=== PATIENT | female | born 1980 | race American Indian/Alaskan Native ===

== ENCOUNTER 2016-09-30 14:08 | Emergency (ER) | payer MEDICAID, OTHER ==
--- NOTE | 2016-09-30 15:02 | Emergency Department Report ---
Chief Complaint: Abdominal Pain Stated Complaint: ABDOMINAL PAIN Time Seen by Provider: 09/30/16 14:46 - HPI History of Present Illness: Patient here complaining or right lower quadrant abdominal pain since 7:00 this morning she says she was sent from urgent care to rule out appendicitis. She reports nausea but denies vomiting. Denies any diarrhea or vaginal bleeding. Denies any vaginal discharge or painful urination. Pain to right lower quadrant is 8 out of 10. Denies any fever or chills. - ROS Review of Systems: All systems are negative unless stated in HPI above. - Exam Vital Signs: Vital Signs 09/30/16 14:11 Temperature 98.3 F Pulse Rate 72 Respiratory 16 Rate Blood Pressure 141/97 O2 Sat by Pulse 100 Oximetry Physical Exam: General: This is a 36-year-old female well-nourished well-developed in no acute distress. CV: S1, S2. Regular rate and rhythm. Abdomen: Tender to palpate to right lower quadrant with positive guarding. Normal bowel sounds and no CVA tenderness. MSE screening note: Focused history and physical exam performed. Due to findings the following was ordered: See MDM ED Medical Decision Making - Medical Decision Making Medical decision making: Patient seen by provider in triage area. Appropriate protocol activated and patient to main ED to be seen by physician. ED Disposition for MSE Condition: Stable Instructions: Abdominal Pain (ED)
[2016-09-30 15:43] LABS: Basophils % (Auto) 0.8 % (0.0-1.8); Eosinophils % (Auto) 0.4 % (0.0-4.3); Hemoglobin 13.4 gm/dl (10.1-14.3); Mean Corpuscular HGB Conc 33 % (30-34); Mean Corpuscular Hemoglobin 32 pg (28-32); Mean Corpuscular Volume 98 fl (79-97); Platelet Count 292 K/mm3 (140-440); Red Blood Count 4.19 M/mm3 (3.65-5.03); Red Cell Distribution Width 14.3 % (13.2-15.2); White Blood Count 11.8 K/mm3 (4.5-11.0)
[2016-09-30 15:49] LABS: INR 0.95 (0.87-1.13)
[2016-09-30 15:50] LABS: Partial Thromboplastin Time 32.2 Sec. (24.2-36.6)
[2016-09-30 16:01] LABS: Alanine Aminotransferase 8 units/L (7-56); Albumin 4.4 g/dL (3.9-5); Albumin/Globulin Ratio 1.3 %; Alkaline Phosphatase 54 units/L (35-129); Anion Gap 18 mmol/L; Bilirubin,Total 0.6 mg/dL (0.1-1.2); Blood Urea Nitrogen 9 mg/dL (7-17); Calcium 9.6 mg/dL (8.4-10.2); Carbon Dioxide 26 mmol/L (22-30); Chloride 99.9 mmol/L (98-107); Glucose 80 mg/dL (65-100); Lipase 48 units/L (13-60); Potassium 4.5 mmol/L (3.6-5.0); Sodium 139 mmol/L (137-145); Total Protein 7.8 g/dL (6.3-8.2)
[2016-09-30 16:15] LABS: Bilirubin,Direct < 0.2 mg/dL (0-0.2); Bilirubin,Indirect 0.4 mg/dL
--- NOTE | 2016-09-30 17:54 | Cat Scan Report ---
FINAL REPORT EXAM: CT ABDOMEN PELVIS WO CON HISTORY: abdominal pain RLQ. TECHNIQUE: CT abdomen and pelvis without contrast PRIORS: None. FINDINGS: No acute abnormality identified in the lung bases. No focal abnormality identified within the liver parenchyma. The spleen demonstrates normal size and attenuation. No pancreatic abnormalities seen. Kidneys demonstrate no evidence of hydronephrosis or nephrolithiasis. No ureteral calculus identified. The adrenal glands are unremarkable. Abdominal aorta is normal in caliber. No pathologically enlarged lymph nodes are identified. No signs of free fluid or free air No evidence of small bowel dilatation. Distal appendix is tentatively identified. Proximal appendix is not well seen. There are no acute inflammatory changes seen within the right lower quadrant unremarkable. IMPRESSION: Negative. No acute abnormalities seen
[2016-09-30 19:19] LABS: Bilirubin,Urine NEG (Negative); Blood,Urine NEG (Negative); Ketones,Urine 20 mg/dL (Negative); Leukocyte Esterase,Urine NEG (Negative); Mucus,Urine FEW /HPF; Nitrite,Urine NEG (Negative); Protein,Urine <15 mg/dL mg/dL (Negative); Urobilinogen,Urine < 2.0 mg/dL (<2.0)
[2016-09-30 19:31] LABS: WBC,Urine < 1.0 /HPF (0.0-6.0)
--- NOTE | 2016-10-01 18:27 | ED Elopement Review ---
ED Pt Elopement review - Results review Lab results: Laboratory Tests 09/30/16 09/30/16 09/30/16 15:18 15:18 15:18 WBC 11.8 H RBC 4.19 Hgb 13.4 Hct 41.0 MCV 98 H MCH 32 MCHC 33 RDW 14.3 Plt Count 292 Lymph % (Auto) 31.4 Tift % (Auto) 6.4 Eos % (Auto) 0.4 Baso % (Auto) 0.8 Lymph # 3.7 Tift # 0.8 Eos # 0.1 Baso # 0.1 Seg Neutrophils % 61.0 Seg Neutrophils # 7.2 PT 12.6 INR 0.95 APTT 32.2 Sodium Potassium Chloride Carbon Dioxide Anion Gap BUN Creatinine Estimated GFR BUN/Creatinine Ratio Glucose Calcium Total Bilirubin Direct Bilirubin Indirect Bilirubin AST ALT Alkaline Phosphatase Total Protein Albumin Albumin/Globulin Ratio Amylase 73 Lipase HCG, Qual Urine Color Urine Turbidity Urine pH Ur Specific [place] Urine Protein Urine Glucose (UA) Urine Ketones Urine Blood Urine Nitrite Urine Bilirubin Urine Urobilinogen Ur Leukocyte Esterase Urine WBC (Auto) Urine RBC (Auto) U Epithel Cells (Auto) Urine Mucus 09/30/16 09/30/16 09/30/16 15:18 15:18 18:30 WBC RBC Hgb Hct MCV MCH MCHC RDW Plt Count Lymph % (Auto) Tift % (Auto) Eos % (Auto) Baso % (Auto) Lymph # Tift # Eos # Baso # Seg Neutrophils % Seg Neutrophils # PT INR APTT Sodium 139 Potassium 4.5 Chloride 99.9 Carbon Dioxide 26 Anion Gap 18 BUN 9 Creatinine 0.5 L Estimated GFR > 60 BUN/Creatinine Ratio 18.00 Glucose 80 Calcium 9.6 Total Bilirubin 0.6 Direct Bilirubin < 0.2 Indirect Bilirubin 0.4 AST 14 ALT 8 Alkaline Phosphatase 54 Total Protein 7.8 Albumin 4.4 Albumin/Globulin Ratio 1.3 Amylase Lipase 48 HCG, Qual Negative Urine Color Yellow Urine Turbidity Clear Urine pH 5.0 Ur Specific [place] 1.012 Urine Protein <15 mg/dl Urine Glucose (UA) Neg Urine Ketones 20 Urine Blood Neg Urine Nitrite Neg Urine Bilirubin Neg Urine Urobilinogen < 2.0 Ur Leukocyte Esterase Neg Urine WBC (Auto) < 1.0 Urine RBC (Auto) 1.0 U Epithel Cells (Auto) 1.0 Urine Mucus Few - Call Back decision Pt Call Back Decision: No action required
== END 2016-09-30 23:47 | disposition home or self-care (01) ==
LOC: ED 14:08
DX: R10.31 Right lower quadrant pain (principal); R11.0 Nausea; Z53.21 Procedure and treatment not carried out due to patient leaving prior to being seen by health care provider
CPT/HCPCS: 36415; 74176; 80048; 80074; 81001; 82150; 83690; 84703; 85025; 85610; 85730

== ENCOUNTER 2019-10-15 14:32 | Emergency (ER) | payer SELFPAY ==
--- NOTE | 2019-10-15 16:22 | Event Note ---
ED Screening Note Date of service: 10/15/19 ED Screening Note: This initial assessment/diagnostic orders/clinical plan/treatment(s) is/are subject to change based on patients health status, clinical progression and re- assessment by fellow clinical providers in the ED. Further treatment and workup at subsequent clinical providers discretion. Patient/guardian urged not to elope from the ED as their condition may be serious if not clinically assessed and managed. Initial orders include: Cough, N/P for 3-4 days. Chronic R hand soreness with repetitive use syndrome. Works as Photocopying Equipment Mechanic. N/V Intact. No deformity
--- NOTE | 2019-10-15 17:05 | XRay Report ---
RIGHT HAND 3 VIEWS INDICATION / CLINICAL INFORMATION: Right hand pain and weakness for one week. COMPARISON: None available. FINDINGS: BONES and JOINT(S): No acute fracture or subluxation. No significant arthritis. SOFT TISSUES: No significant abnormality. ADDITIONAL FINDINGS: None. IMPRESSION: No significant abnormality of the right hand. Signer Name: Jesu Zapata MD Signed: 10/15/2019 5:01 PM Workstation Name: [id number]
--- NOTE | 2019-10-15 17:06 | XRay Report ---
CHEST 2 VIEWS INDICATION / CLINICAL INFORMATION: Cough. Body aches. COMPARISON: One view of the chest from 07/30/2014. FINDINGS: SUPPORT DEVICES: None. HEART / MEDIASTINUM: No significant abnormality. LUNGS / PLEURA: No significant pulmonary or pleural abnormality. No pneumothorax. ADDITIONAL FINDINGS: No significant additional findings. IMPRESSION: 1. No acute abnormality of the chest. Signer Name: Jesu Zapata MD Signed: 10/15/2019 5:02 PM Workstation Name: [id number]
[2019-10-15] MEDS ORDERED: predniSONE 20 MG TAB PO ONE (20:52)
[2019-10-15] MEDS ORDERED: IBUPROFEN 600 MG TAB PO ONE (20:52)
--- NOTE | 2019-10-15 21:14 | Emergency Department Report ---
- General Chief Complaint: Upper Respiratory Infection Stated Complaint: FLU SYM Source: patient Mode of arrival: Ambulatory Limitations: No Limitations - History of Present Illness Initial Comments: Patient is a 39-year-old I[place]ian female with no past medical history presents to the ED with complaints of acute onset persistent nasal and sinus congestion, frontal sinus pressure, sore throat, dry cough with diffuse body aches and pains for the last 2 days. Mother states that the one daughter has had similar symptoms the last 1 week. Patient also complains of severe right wrist and hand from overuse of her right hand at work. Patient denies fever, chills, nausea, vomiting, chest pain, shortness of breath, abdominal pain, diarrhea, dizziness, headache, change in vision, dysuria, urinary frequency and urgency, fall, traumatic injury or heavy lifting. MD Complaint: cough, sore throat, rhinorrhea, nasal congestion, sinus pain, other (right wrist and hand pain) -: Sudden, days(s) (2) Severity: severe Severity scale (0 -10): 7 Quality: sharp, aching Consistency: constant Improves With: nothing Worsens With: nothing Context: sick contacts Associated Symptoms: denies other symptoms, headache, rhinorrhea, nasal congestion, sore throat, cough. denies: fever, chills, myalgias, diaphoresis, stiff neck, chest pain, abdominal pain, vomiting, diarrhea, dysuria, rash, right sweats, weight loss, hoarseness, ear pain Treatments Prior to Arrival: none - Related Data Home Medications Medication Instructions Recorded Confirmed Last Taken Ondansetron (Nf) [Zofran] 8 mg PO Q8H PRN 07/30/14 09/30/16 07/30/14 13:00 Pnv95/Ferrous Fumarate/FA 1 tab PO QDAY 07/30/14 09/30/16 07/30/14 09:00 [ Vitamins] Previous Rx's Medication Instructions Recorded Last Taken Type HYDROcodone/APAP 5-325 [Christiana 1 each PO Q6HR PRN #20 tablet 01/15/15 Unknown Rx 5/325] Ibuprofen [Motrin] 600 mg PO Q8H PRN #20 tablet 07/23/16 Unknown Rx Benzonatate [Tessalon Perles] 100 mg PO Q8HR #30 capsule 10/15/19 Unknown Rx DOXYCYCLINE Hyclate [Vibramycin 100 mg PO Q12HR #20 capsule 10/15/19 Unknown Rx CAP] Ibuprofen [Motrin 800 MG tab] 800 mg PO TID PRN #30 tablet 10/15/19 Unknown Rx Prednisone [predniSONE 10 mg 10 mg PO .TAPER #21 tab.ds.pk 10/15/19 Unknown Rx (6-Day Pack, 21 Tabs)] Allergies Allergy/AdvReac Type Severity Reaction Status Date / Time No Known Allergies Allergy Verified 07/30/14 17:36 ED Review of Systems ROS: Stated complaint: FLU SYM Other details as noted in HPI Constitutional: denies: chills, fever Eyes: denies: eye pain, eye discharge, vision change ENT: congestion, other (frontal sinus pressure). denies: ear pain, throat pain Respiratory: cough. denies: shortness of breath, SOB with exertion, wheezing Cardiovascular: denies: chest pain, palpitations, dyspnea on exertion, edema, syncope, paroxysmal nocturnal dyspnea Endocrine: no symptoms reported Gastrointestinal: denies: abdominal pain, nausea, vomiting, diarrhea Genitourinary: denies: urgency, dysuria, discharge Musculoskeletal: back pain, arthralgia (right hand and wrist pain), myalgia. denies: joint swelling Skin: denies: rash, lesions, change in color, change in hair/nails Neurological: denies: headache, weakness, paresthesias, confusion, abnormal gait, vertigo Psychiatric: denies: anxiety, depression Hematological/Lymphatic: denies: easy bleeding, easy bruising ED Past Medical Hx - Past Medical History Previous Medical History?: No Hx Hypertension: No Hx Congestive Heart Failure: No Hx Diabetes: Yes Hx Deep Vein Thrombosis: No Hx Renal Disease: No Hx Sickle Cell Disease: No Hx Seizures: No Hx Asthma: No Hx COPD: No Hx HIV: No - Surgical History Past Surgical History?: No - Social History Smoking Status: Current Every Day Smoker Substance Use Type: None - Medications Home Medications: Home Medications Medication Instructions Recorded Confirmed Last Taken Type Ondansetron (Nf) [Zofran] 8 mg PO Q8H PRN 07/30/14 09/30/16 07/30/14 13:00 History Pnv95/Ferrous Fumarate/FA 1 tab PO QDAY 07/30/14 09/30/16 07/30/14 09:00 History [ Vitamins] HYDROcodone/APAP 5-325 [Christiana 1 each PO Q6HR PRN #20 tablet 01/15/15 09/30/16 Unknown Rx 5/325] Ibuprofen [Motrin] 600 mg PO Q8H PRN #20 tablet 07/23/16 09/30/16 Unknown Rx Benzonatate [Tessalon Perles] 100 mg PO Q8HR #30 capsule 10/15/19 Unknown Rx DOXYCYCLINE Hyclate [Vibramycin 100 mg PO Q12HR #20 capsule 10/15/19 Unknown Rx CAP] Ibuprofen [Motrin 800 MG tab] 800 mg PO TID PRN #30 tablet 10/15/19 Unknown Rx Prednisone [predniSONE 10 mg 10 mg PO .TAPER #21 tab.ds.pk 10/15/19 Unknown Rx (6-Day Pack, 21 Tabs)] ED Physical Exam - General Limitations: No Limitations General appearance: alert, in no apparent distress - Head Head exam: Present: atraumatic, normocephalic, normal inspection - Eye Eye exam: Present: normal appearance, PERRL, EOMI Pupils: Present: normal accommodation - ENT ENT exam: Present: mucous membranes moist, TM's normal bilaterally, normal external ear exam, other (grossly congested nasal passages, palpable frontal sinus tenderness) - Neck Neck exam: Present: normal inspection, full ROM, lymphadenopathy - Respiratory Respiratory exam: Present: normal lung sounds bilaterally. Absent: respiratory distress, wheezes, rales, rhonchi, chest wall tenderness, decreased breath sounds, prolonged expiratory - Cardiovascular Cardiovascular Exam: Present: regular rate, normal rhythm, normal heart sounds. Absent: systolic murmur, diastolic murmur, rubs, gallop - GI/Abdominal GI/Abdominal exam: Present: soft, normal bowel sounds. Absent: tenderness, guarding, hyperactive bowel sounds, hypoactive bowel sounds - Extremities Exam Extremities exam: Present: normal inspection, full ROM, tenderness (palpable right wrist and right hand tenderness), normal capillary refill. Absent: pedal edema, joint swelling, calf tenderness - Back Exam Back exam: Present: normal inspection, full ROM. Absent: tenderness, CVA tenderness (R), CVA tenderness (L), muscle spasm, vertebral tenderness - Neurological Exam Neurological exam: Present: alert, oriented X3, CN II-XII intact, normal gait, reflexes normal - Psychiatric Psychiatric exam: Present: normal affect, normal mood - Skin Skin exam: Present: warm, dry, intact, normal color. Absent: rash ED Course Vital Signs 10/15/19 15:09 Temperature 98.1 F Pulse Rate 95 H Respiratory 16 Rate Blood Pressure 105/69 O2 Sat by Pulse 97 Oximetry ED Medical Decision Making - Radiology Data Radiology results: report reviewed, image reviewed Findings [address] [address] XRay Report Signed Patient: IDA HUNG MR#: [id number] : 1980 Acct:[id number] Age/Sex: 39 / F ADM Date: 10/15/19 Loc: ED Attending Dr: Ordering Physician: IVON PEACE MD Date of Service: 10/15/19 Procedure(s): XR hand 3+V RT Accession Number(s): [id number] cc: IVON PEACE MD Fluoro Time In Minutes: RIGHT HAND 3 VIEWS INDICATION / CLINICAL INFORMATION: Right hand pain and weakness for one week. COMPARISON: None available. FINDINGS: BONES and JOINT(S): No acute fracture or subluxation. No significant arthritis. SOFT TISSUES: No significant abnormality. ADDITIONAL FINDINGS: None. IMPRESSION: No significant abnormality of the right hand. Signer Name: Jesu Zapata MD Signed: 10/15/2019 5:01 PM Workstation Name: [id number] Transcribed By: JUHI Dictated By: Jesu Zapata MD Electronically Authenticated By: Jesu Zapata MD Signed Date/Time: 10/15/191700 DD/ 99 TD/TT: Findings [address] [address] XRay Report Signed Patient: IDA HUNG MR#: [id number] : 1980 Acct:[id number] Age/Sex: 39 / F ADM Date: 10/15/19 Loc: ED Attending Dr: Ordering Physician: IVON PEACE MD Date of Service: 10/15/19 Procedure(s): XR chest routine 2V Accession Number(s): [id number] cc: IVON PEACE MD Fluoro Time In Minutes: CHEST 2 VIEWS INDICATION / CLINICAL INFORMATION: Cough. Body aches. COMPARISON: One view of the chest from 07/30/2014. FINDINGS: SUPPORT DEVICES: None. HEART / MEDIASTINUM: No significant abnormality. LUNGS / PLEURA: No significant pulmonary or pleural abnormality. No pneumothorax. ADDITIONAL FINDINGS: No significant additional findings. IMPRESSION: 1. No acute abnormality of the chest. Signer Name: Jesu Zapata MD Signed: 10/15/2019 5:02 PM Workstation Name: [id number] Transcribed By: MN Dictated By: Jesu Zapata MD Electronically Authenticated By: Jesu Zapata MD Signed Date/Time: 10/15/191701 DD/ 00 TD/TT: - Medical Decision Making This is a 39-year-old female who presented to the ED with painful right recent right hand, and nasal and sinus congestion, dry cough, frontal sinus pressure and headache with diffuse body aches and pains. In the ED, patient is alert and oriented 3 and is not in distress. Patient was treated for pain in the ED. Chest x-ray shows no acute cardiopulmonary monitors on pneumonitis. Right hand x-ray shows no acute fractures or subluxations. Patient was discharged home on pain medications and other medication was advised to follow-up with her primary care physician in 5-7 days for reevaluation or return to the ED immediately if symptoms get worse. - Differential Diagnosis URI; Bronchitis; Sinusitis; Pneumonia; Tendonitis; muscle strain Critical care attestation.: If time is entered above; I have spent that time in minutes in the direct care of this critically ill patient, excluding procedure time. ED Disposition Clinical Impression: Right wrist tendinitis, Acute upper respiratory infection, Strain of muscle of right hand Acute bronchitis Qualifiers: Bronchitis organism: other organism Qualified Code(s): J20.8 - Acute bronchitis due to other specified organisms Disposition: DC- TO HOME OR SELFCARE Is pt being admited?: No Does the pt Need Aspirin: No Condition: Stable Instructions: Acute Bronchitis (ED), Muscle Strain (ED), Upper Respiratory Infection (ED), Tendinitis (ED) Additional Instructions: Take medication with food, drink plenty of fluids and follow-up with your primary care physician in 7-10 days for reevaluation. Return to the ED immediately if symptoms get worse. Prescriptions: Ibuprofen [Motrin 800 MG tab] 800 mg PO TID PRN #30 tablet PRN Reason: Pain Prednisone [predniSONE 10 mg (6-Day Pack, 21 Tabs)] 10 mg PO .TAPER #21 tab.ds.pk Benzonatate [Tessalon Perles] 100 mg PO Q8HR #30 capsule DOXYCYCLINE Hyclate [Vibramycin CAP] 100 mg PO Q12HR #20 capsule Referrals: ALYSA BLACKWELL MD [Staff Physician] - 7-10 days Forms: Work/School Release Form(ED) Time of Disposition: 21:21 Print Language: BENINESE
[2019-10-15 21:45] VITALS: BP 132/82
== END 2019-10-15 21:45 | disposition home or self-care (01) ==
LOC: ED 14:32
DX: S66.911A Strain of unspecified muscle, fascia and tendon at wrist and hand level, right hand, initial encounter (principal); J06.9 Acute upper respiratory infection, unspecified; M77.9 Enthesopathy, unspecified; J20.8 Acute bronchitis due to other specified organisms; F17.200 Nicotine dependence, unspecified, uncomplicated; Z79.899 Other long term (current) drug therapy; X58.XXXA Exposure to other specified factors, initial encounter; Y93.89 Activity, other specified; Y92.89 Other specified places as the place of occurrence of the external cause; Y99.8 Other external cause status
CPT/HCPCS: 71046; 73130; 99283; J7512

== ENCOUNTER 2020-09-04 14:42 | Emergency (ER) | payer MEDICAID ==
[2020-09-04 15:31] VITALS: BP 187/100
--- NOTE | 2020-09-04 15:33 | Event Note ---
ED Screening Note Date of service: 09/04/20 Time: 15:33 ED Screening Note: Patient complains of abdominal pain Appears intoxicated Difficulty in getting HPI This initial assessment/diagnostic orders/clinical plan/treatment(s) is/are subject to change based on patients health status, clinical progression and re- assessment by fellow clinical providers in the ED. Further treatment and workup at subsequent clinical providers discretion. Patient/guardian urged not to elope from the ED as their condition may be serious if not clinically assessed and managed. Initial orders include: Labs
[2020-09-04] MEDS ORDERED: ONDANSETRON 4 MG ODT TAB ONE (16:07)
[2020-09-04] MEDS ORDERED: ONDANSETRON 4 MG ODT TAB PO ONE (16:07)
[2020-09-04 16:27] LABS: Basophils # (Auto) 0.1 K/mm3 (0.0-0.1); Basophils % (Auto) 0.5 % (0.0-1.8); Hematocrit 42.5 % (30.3-42.9); Hemoglobin 14.2 gm/dl (10.1-14.3); Lymphocytes # (Auto) 2.3 K/mm3 (1.2-5.4); Lymphocytes % (Auto) 18.2 % (13.4-35.0); Mean Corpuscular HGB Conc 33 % (30-34); Mean Corpuscular Volume 102 fl (79-97); Monocytes # (Auto) 0.4 K/mm3 (0.0-0.8); Monocytes % (Auto) 3.4 % (0.0-7.3); Platelet Count 293 K/mm3 (140-440); Red Blood Count 4.17 M/mm3 (3.65-5.03); Red Cell Distribution Width 13.6 % (13.2-15.2)
[2020-09-04 17:02] LABS: Alanine Aminotransferase 12 units/L (7-56); Albumin 4.9 g/dL (3.9-5); Blood Urea Nitrogen 9 mg/dL (7-17); Calcium 9.7 mg/dL (8.4-10.2); Hemolysis Index 7
[2020-09-04 17:23] LABS: Bilirubin,Urine NEG (Negative); Blood,Urine NEG (Negative); Color,Urine Straw (Yellow); Mucus,Urine FEW /HPF; Urobilinogen,Urine < 2.0 mg/dL (<2.0)
[2020-09-04 17:23] LABS: BUN/Creatinine Ratio 23
[2020-09-04 17:28] LABS: Amphetamine Screen,Urine Negative; Benzodiazepines Screen,Urine Negative; Cocaine Screen,Urine Negative; Methadone Screen,Urine Negative; Opiate Screen,Urine Negative
[2020-09-04 17:36] LABS: WBC,Urine < 1.0 /HPF (0.0-6.0)
[2020-09-04 17:52] LABS: Cannabinoid Screen,Urine PRESUMPTIVE POSITIVE
== END 2020-09-04 16:00 | disposition left against medical advice (07) ==
LOC: ED 14:42
DX: R10.9 Unspecified abdominal pain (principal); Z53.21 Procedure and treatment not carried out due to patient leaving prior to being seen by health care provider
CPT/HCPCS: 36415; 80053; 80307; 80320; 81001; 83690; 84703; 85025; G0480; Q0162

== ENCOUNTER 2020-09-25 11:36 | Emergency (ER) | payer MEDICAID ==
--- NOTE | 2020-09-25 12:21 | Event Note ---
ED Screening Note ED Screening Note: Patient is a 40-year-old female presents emergency room with complaints of lower abdominal pain that began a week ago and worsened yesterday. She states that she has had intermittent blood in her stool for 5 years. She has associated nausea. She states that her doctor put her on omeprazole. She states that she was supposed to see a GI doctor but had issues with her insurance. She has not had a colonoscopy. She denies any fever, vomiting, diarrhea, urinary symptoms. Past medical history of hypertension. No allergies to medications. No abdominal surgical history. This initial assessment/diagnostic orders/clinical plan/treatment(s) is/are subject to change based on patients health status, clinical progression and re- assessment by fellow clinical providers in the ED. Further treatment and workup at subsequent clinical providers discretion. Patient/guardian urged not to elope from the ED as their condition may be serious if not clinically assessed and managed. Initial orders include: labs, UA
[2020-09-25 13:37] LABS: HCG Qualitative,Urine Negative (Negative)
[2020-09-25 13:38] LABS: Bacteria,Urine 1+ /HPF (Negative); Bilirubin,Urine NEG (Negative); Blood,Urine MOD (Negative); Color,Urine Amber (Yellow); Mucus,Urine 3+ /HPF
[2020-09-25 14:31] LABS: Basophils # (Auto) 0.1 K/mm3 (0.0-0.1); Basophils % (Auto) 0.4 % (0.0-1.8); Eosinophils % (Auto) 0.1 % (0.0-4.3); Hemoglobin 12.3 gm/dl (10.1-14.3); Lymphocytes # (Auto) 1.2 K/mm3 (1.2-5.4); Lymphocytes % (Auto) 6.8 % (13.4-35.0); Mean Corpuscular HGB Conc 33 % (30-34); Mean Corpuscular Volume 102 fl (79-97); Monocytes % (Auto) 5.3 % (0.0-7.3); Platelet Count 295 K/mm3 (140-440); Red Blood Count 3.62 M/mm3 (3.65-5.03); Red Cell Distribution Width 14.4 % (13.2-15.2)
[2020-09-25 14:56] LABS: Alanine Aminotransferase 7 units/L (7-56); Albumin 4.5 g/dL (3.9-5); BUN/Creatinine Ratio 16; Blood Urea Nitrogen 8 mg/dL (7-17); Calcium 9.8 mg/dL (8.4-10.2); Hemolysis Index 5
[2020-09-25] MEDS ORDERED: SODIUM CHLORIDE 0.9% 1000 ML 1,000 ML IV ONE (15:33)
[2020-09-25] MEDS ORDERED: cefTRIAXone/NS 1 GM/50 ML 1 GM/50 ML BAG IV ONE (15:33)
[2020-09-25] MEDS ORDERED: ONDANSETRON 4 MG/2 ML INJ IV ONE (15:33)
[2020-09-25] MEDS ORDERED: MORPHINE 4 MG/1 ML INJ IV ONE (15:33)
--- NOTE | 2020-09-25 15:35 | Emergency Department Report ---
ED Abdominal Pain HPI - General Chief Complaint: Abdominal Pain Stated Complaint: ABDOMINAL PAIN Time Seen by Provider: 09/25/20 12:20 Source: patient Mode of arrival: Ambulatory Limitations: No Limitations - History of Present Illness Initial Comments: Patient is a 40-year-old female presents emergency room with complaints of lower abdominal pain that began a week ago and worsened yesterday. She states that she has had intermittent blood in her stool for 5 years. She has associated nausea. She states that her doctor put her on omeprazole. She states that she was supposed to see a GI doctor but had issues with her insurance. She has not had a colonoscopy. She denies any fever, vomiting, diarrhea, urinary symptoms. Past medical history of hypertension. No allergies to medications. No abdominal surgical history. - Related Data Home Medications Medication Instructions Recorded Confirmed Last Taken Ondansetron (Nf) [Zofran] 8 mg PO Q8H PRN 07/30/14 09/30/16 07/30/14 13:00 Pnv95/Ferrous Fumarate/FA 1 tab PO QDAY 07/30/14 09/30/16 07/30/14 09:00 [ Vitamins] Previous Rx's Medication Instructions Recorded Last Taken Type HYDROcodone/APAP 5-325 [[place] 1 each PO Q6HR PRN #20 tablet 01/15/15 Unknown Rx 5/325] Ibuprofen [Motrin] 600 mg PO Q8H PRN #20 tablet 07/23/16 Unknown Rx Benzonatate [Tessalon Perles] 100 mg PO Q8HR #30 capsule 10/15/19 Unknown Rx DOXYCYCLINE Hyclate [Vibramycin 100 mg PO Q12HR #20 capsule 10/15/19 Unknown Rx CAP] Ibuprofen [Motrin 800 MG tab] 800 mg PO TID PRN #30 tablet 10/15/19 Unknown Rx Prednisone [predniSONE 10 mg 10 mg PO .TAPER #21 tab.ds.pk 10/15/19 Unknown Rx (6-Day Pack, 21 Tabs)] Acetaminophen/Codeine [Tylenol 1 tab PO Q6H PRN #10 tab 09/25/20 Unknown Rx /Codeine # 3 tab] Ibuprofen [Motrin 600 MG tab] 600 mg PO Q8H PRN #20 tablet 09/25/20 Unknown Rx Phenazopyridine [Pyridium] 100 mg PO TID #9 tab 09/25/20 Unknown Rx cephALEXin [Keflex] 500 mg PO BID 7 Days #14 cap 09/25/20 Unknown Rx Allergies Allergy/AdvReac Type Severity Reaction Status Date / Time No Known Allergies Allergy Verified 09/25/20 12:12 ED Review of Systems ROS: Stated complaint: ABDOMINAL PAIN Other details as noted in HPI Comment: All other systems reviewed and negative ED Past Medical Hx - Past Medical History Hx Hypertension: Yes Hx Congestive Heart Failure: No Hx Diabetes: Yes Hx Deep Vein Thrombosis: No Hx Renal Disease: No Hx Sickle Cell Disease: No Hx Seizures: No Hx Asthma: No Hx COPD: No Hx HIV: No - Surgical History Past Surgical History?: No - Social History Smoking Status: Current Every Day Smoker Substance Use Type: Alcohol - Medications Home Medications: Home Medications Medication Instructions Recorded Confirmed Last Taken Type Ondansetron (Nf) [Zofran] 8 mg PO Q8H PRN 07/30/14 09/30/16 07/30/14 13:00 History Pnv95/Ferrous Fumarate/FA 1 tab PO QDAY 07/30/14 09/30/16 07/30/14 09:00 History [ Vitamins] HYDROcodone/APAP 5-325 [[place] 1 each PO Q6HR PRN #20 tablet 01/15/15 09/30/16 Unknown Rx 5/325] Ibuprofen [Motrin] 600 mg PO Q8H PRN #20 tablet 07/23/16 09/30/16 Unknown Rx Benzonatate [Tessalon Perles] 100 mg PO Q8HR #30 capsule 10/15/19 Unknown Rx DOXYCYCLINE Hyclate [Vibramycin 100 mg PO Q12HR #20 capsule 10/15/19 Unknown Rx CAP] Ibuprofen [Motrin 800 MG tab] 800 mg PO TID PRN #30 tablet 10/15/19 Unknown Rx Prednisone [predniSONE 10 mg 10 mg PO .TAPER #21 tab.ds.pk 10/15/19 Unknown Rx (6-Day Pack, 21 Tabs)] Acetaminophen/Codeine [Tylenol 1 tab PO Q6H PRN #10 tab 09/25/20 Unknown Rx /Codeine # 3 tab] Ibuprofen [Motrin 600 MG tab] 600 mg PO Q8H PRN #20 tablet 09/25/20 Unknown Rx Phenazopyridine [Pyridium] 100 mg PO TID #9 tab 09/25/20 Unknown Rx cephALEXin [Keflex] 500 mg PO BID 7 Days #14 cap 09/25/20 Unknown Rx ED Physical Exam - General Limitations: No Limitations General appearance: alert, in no apparent distress - Head Head exam: Present: atraumatic, normocephalic - Eye Eye exam: Present: normal appearance - ENT ENT exam: Present: mucous membranes moist - Respiratory Respiratory exam: Present: normal lung sounds bilaterally. Absent: respiratory distress, wheezes, rales, rhonchi, stridor, chest wall tenderness, accessory muscle use, decreased breath sounds, prolonged expiratory - Cardiovascular Cardiovascular Exam: Present: regular rate, normal rhythm, normal heart sounds. Absent: systolic murmur, diastolic murmur, rubs, gallop - GI/Abdominal GI/Abdominal exam: Present: soft, tenderness (generalized lower abd ttp), normal bowel sounds. Absent: distended, guarding, rebound, rigid - Neurological Exam Neurological exam: Present: alert, oriented X3 - Psychiatric Psychiatric exam: Present: normal affect, normal mood - Skin Skin exam: Present: warm, dry, intact ED Course Vital Signs 09/25/20 09/25/20 09/25/20 12:15 16:47 18:00 Temperature 98.4 F 98.4 F Pulse Rate 92 H 80 Respiratory 20 16 16 Rate Blood Pressure 151/101 Blood Pressure 154/90 [Right] O2 Sat by Pulse 98 100 Oximetry ED Medical Decision Making - Lab Data Result diagrams: 09/25/20 14:10 09/25/20 14:10 Lab Results 09/25/20 09/25/20 09/25/20 Range/Units 13:16 14:10 14:10 WBC 18.1 H (4.5-11.0) K/mm3 RBC 3.62 L (3.65-5.03) M/mm3 Hgb 12.3 (10.1-14.3) gm/dl Hct 37.0 (30.3-42.9) % MCV 102 H (79-97) fl MCH 34 H (28-32) pg MCHC 33 (30-34) % RDW 14.4 (13.2-15.2) % Plt Count 295 (140-440) K/mm3 Lymph % (Auto) 6.8 L (13.4-35.0) % [place] % (Auto) 5.3 (0.0-7.3) % Eos % (Auto) 0.1 (0.0-4.3) % Baso % (Auto) 0.4 (0.0-1.8) % Lymph # (Auto) 1.2 (1.2-5.4) K/mm3 Morton # (Auto) 1.0 H (0.0-0.8) K/mm3 Eos # (Auto) 0.0 (0.0-0.4) K/mm3 Baso # (Auto) 0.1 (0.0-0.1) K/mm3 Seg Neutrophils % 87.4 H (40.0-70.0) % Seg Neutrophils # 15.8 H (1.8-7.7) K/mm3 Sodium 138 (137-145) mmol/L Potassium 3.3 L (3.6-5.0) mmol/L Chloride 100.5 (98-107) mmol/L Carbon Dioxide 23 (22-30) mmol/L Anion Gap 18 mmol/L BUN 8 (7-17) mg/dL Creatinine 0.5 L (0.6-1.2) mg/dL Estimated GFR > 60 ml/min BUN/Creatinine Ratio 16 % Glucose 81 (65-100) mg/dL Calcium 9.8 (8.4-10.2) mg/dL Total Bilirubin 1.00 (0.1-1.2) mg/dL AST 11 (5-40) units/L ALT 7 (7-56) units/L Alkaline Phosphatase 86 (35-129) units/L Total Protein 7.5 (6.3-8.2) g/dL Albumin 4.5 (3.9-5) g/dL Albumin/Globulin Ratio 1.5 % Lipase 13 (13-60) units/L Urine Color Alice (Yellow) Urine Turbidity Turbid (Clear) Urine pH 5.0 (5.0-7.0) Ur Specific [place] 1.026 (1.003-1.030) Urine Protein 30 mg/dl (Negative) mg/dL Urine Glucose (UA) Neg (Negative) mg/dL Urine Ketones 80 (Negative) mg/dL Urine Blood Mod (Negative) Urine Nitrite Neg (Negative) Ur Reducing Substances Not Reportable Urine Bilirubin Neg (Negative) Urine Ictotest Not Reportable Urine Urobilinogen 2.0 (<2.0) mg/dL Ur Leukocyte Esterase Lg (Negative) Urine WBC (Auto) 63.0 H (0.0-6.0) /HPF Urine RBC (Auto) 5.0 (0.0-6.0) /HPF U Epithel Cells (Auto) 5.0 (0-13.0) /HPF Urine Bacteria (Auto) 1+ (Negative) /HPF Urine Mucus 3+ /HPF Urine HCG, Qual Negative (Negative) Vital Signs 09/25/20 09/25/20 09/25/20 12:15 16:47 18:00 Temperature 98.4 F 98.4 F Pulse Rate 92 H 80 Respiratory 20 16 16 Rate Blood Pressure 151/101 Blood Pressure 154/90 [Right] O2 Sat by Pulse 98 100 Oximetry - Radiology Data Radiology results: report reviewed Ordering Physician: TIGIST BARRERA Date of Service: 09/25/20 Procedure(s): CT abdomen pelvis w con Accession Number(s): [id number] cc: TIGIST [facility] CT ABDOMEN AND PELVIS WITH IV CONTRAST INDICATION: lower abdominal pain, hematochezia. COMPARISON: None available. TECHNIQUE: All CT scans at this facility use dose modulation, automated exposure control, iterative reconstruction or weight based dosing, when appropriate, to reduce radiation dose to as low as reasonably achievable. FINDINGS: Lung Bases: No significant abnormality. Skeletal System: No acute abnormality. ABDOMEN: Liver: No significant abnormality. Gallbladder: No significant abnormality. Bile Ducts: No significant abnormality. Pancreas: No significant abnormality. Spleen: No significant abnormality. Adrenals: No significant abnormality. Right Kidney: No significant abnormality. Left Kidney: No significant abnormality. Upper GI tract: No significant abnormality. Lymph Nodes: No significant adenopathy. Aorta: No significant abnormality. Additional Findings: No significant abnormality. PELVIS: Colon: No acute abnormality. Diverticulosis is noted. Urinary Bladder and Distal Ureters: No significant abnormality. Appendix: No significant abnormality. Lymph Nodes: No significant adenopathy. Additional Findings: None. IMPRESSION: 1. No acute process in the abdomen or pelvis. 2. Colonic diverticulosis. No acute diverticulitis is seen. Signer Name: Moy Burroughs MD Signed: 09/25/2020 5:16 PM Workstation Name: [id number] Transcribed By: JONNY Dictated By: Moy Burroughs MD Electronically Authenticated By: Moy Burroughs MD Signed Date/Time: 09/25/201715 DD/ 11 TD/TT: - Medical Decision Making Patient is a 40-year-old female presents emergency room with complaints of lower abdominal pain that began a week ago and worsened yesterday. She states that she has had intermittent blood in her stool for 5 years. She has associated nausea. She states that her doctor put her on omeprazole. She states that she was supposed to see a GI doctor but had issues with her insurance. She has not had a colonoscopy. She denies any fever, vomiting, diarrhea, urinary symptoms. Past medical history of hypertension. No allergies to medications. No abdominal surgical history. VSS. On exam generalized lower abdominal tenderness palpation, no guarding, no rigidity, normal sounds, no peritoneal signs. CT abd pelvis with IV contrast: 1. No acute process in the abdomen or pelvis. 2. Colonic diverticulosis. No acute diverticulitis is seen. labs with elevated WBC at 18k, mild hypokalemia, discussed oral potassium repletion with patient. UA shows evidence of UTI. Patient given 1 g ceftriaxone while in the emergency department. Patient given medications and her symptoms improved and she was feeling much better and ready to go home. Discussed all results with patient and answered questions. Discussed the importance of follow-up with patient. Discussed return precautions. Patient given prescription for Keflex, Pyridium, Tylenol with codeine, ibuprofen. Advised patient Please take medication as prescribed. Do not drive or operate heavy machinery while taking severe pain medication. medication may turn your urine orange, this is normal. Increase your water intake. Follow-up with a primary care doctor. Follow-up with a GI doctor. Return to emergency room for any new or worsening symptoms. Critical care attestation.: If time is entered above; I have spent that time in minutes in the direct care of this critically ill patient, excluding procedure time. ED Disposition Clinical Impression: Diverticulosis Abdominal pain Qualifiers: Abdominal location: lower abdomen, unspecified Qualified Code(s): R10.30 - Lower abdominal pain, unspecified UTI (urinary tract infection) Qualifiers: Urinary tract infection type: acute cystitis Hematuria presence: without hematuria Qualified Code(s): N30.00 - Acute cystitis without hematuria Disposition: TO HOME OR SELFCARE Is pt being admited?: No Does the pt Need Aspirin: No Condition: Stable Instructions: Abdominal Pain, Adult, Urinary Tract Infection, Adult, [id number], Diverticulosis, Abdominal Pain (ED) Additional Instructions: Please take medication as prescribed. Do not drive or operate heavy machinery while taking severe pain medication. medication may turn your urine orange, this is normal. Increase your water intake. Follow-up with a primary care doctor. Follow-up with a GI doctor. Return to emergency room for any new or worsening symptoms. Prescriptions: cephALEXin [Keflex] 500 mg PO BID 7 Days #14 cap Ibuprofen [Motrin 600 MG tab] 600 mg PO Q8H PRN #20 tablet PRN Reason: Pain, Moderate (4-6) Phenazopyridine [Pyridium] 100 mg PO TID #9 tab Acetaminophen/Codeine [Tylenol /Codeine # 3 tab] 1 tab PO Q6H PRN #10 tab PRN Reason: Pain , Severe (7-10) Referrals: PRIMARY CARE, [Primary Care Provider] - 2-3 Days [facility] [Provider Group] - 2-3 Days Forms: Work/School Release Form(ED) Time of Disposition: 17:32 Print Language: MONGOLIAN
--- NOTE | 2020-09-25 17:20 | Cat Scan Report ---
CT ABDOMEN AND PELVIS WITH IV CONTRAST INDICATION: lower abdominal pain, hematochezia. COMPARISON: None available. TECHNIQUE: All CT scans at this facility use dose modulation, automated exposure control, iterative reconstructi on or weight based dosing, when appropriate, to reduce radiation dose to as low as reasonably achieva ble. FINDINGS: Lung Bases: No significant abnormality. Skeletal System: No acute abnormality. ABDOMEN: Liver: No significant abnormality. Gallbladder: No significant abnormality. Bile Ducts: No significant abnormality. Pancreas: No significant abnormality. Spleen: No significant abnormality. Adrenals: No significant abnormality. Right Kidney: No significant abnormality. Left Kidney: No significant abnormality. Upper GI tract: No significant abnormality. Lymph Nodes: No significant adenopathy. Aorta: No significant abnormality. Additional Findings: No significant abnormality. PELVIS: Colon: No acute abnormality. Diverticulosis is noted. Urinary Bladder and Distal Ureters: No significant abnormality. Appendix: No significant abnormality. Lymph Nodes: No significant adenopathy. Additional Findings: None. IMPRESSION: 1. No acute process in the abdomen or pelvis. 2. Colonic diverticulosis. No acute diverticulitis is seen. Signer Name: Moy Burroughs MD Signed: 09/25/2020 5:16 PM Workstation Name: [id number]
[2020-09-25 19:28] VITALS: BP 154/90
== END 2020-09-25 18:00 | disposition home or self-care (01) ==
LOC: ED 11:36
DX: K57.90 Diverticulosis of intestine, part unspecified, without perforation or abscess without bleeding (principal); N39.0 Urinary tract infection, site not specified; R10.30 Lower abdominal pain, unspecified; I10 Essential (primary) hypertension; E11.9 Type 2 diabetes mellitus without complications; F17.200 Nicotine dependence, unspecified, uncomplicated; Z79.1 Long term (current) use of non-steroidal anti-inflammatories (NSAID); Z79.899 Other long term (current) drug therapy
CPT/HCPCS: 36415; 74177; 80053; 81001; 81025; 83690; 85025; 87086; 96365; 96375; 99284; J0696; J2270; J2405; J7030; Q9967

== ENCOUNTER 2020-11-19 18:22 | Emergency (ER) | payer MEDICAID ==
[2020-11-19] MEDS ORDERED: amLODIPine 5 MG TAB PO ONE (20:06)
[2020-11-19] MEDS ORDERED: ACETAMINOPHEN 500 MG TAB PO ONE (20:06)
[2020-11-19] MEDS ORDERED: ASPIRIN 325 MG TAB PO ONE (20:07)
[2020-11-19 20:55] LABS: Basophils # (Auto) 0.1 K/mm3 (0.0-0.1); Basophils % (Auto) 0.8 % (0.0-1.8); Eosinophils # (Auto) 0.1 K/mm3 (0.0-0.4); Eosinophils % (Auto) 0.7 % (0.0-4.3); Hematocrit 35.6 % (30.3-42.9); Hemoglobin 12.1 gm/dl (10.1-14.3); Lymphocytes % (Auto) 36.2 % (13.4-35.0); Mean Corpuscular HGB Conc 34 % (30-34); Mean Corpuscular Volume 102 fl (79-97); Monocytes # (Auto) 0.7 K/mm3 (0.0-0.8); Monocytes % (Auto) 8.4 % (0.0-7.3); Platelet Count 240 K/mm3 (140-440); Red Blood Count 3.48 M/mm3 (3.65-5.03); Red Cell Distribution Width 14.8 % (13.2-15.2)
[2020-11-19 21:19] LABS: Alanine Aminotransferase 8 units/L (7-56); Albumin 4.1 g/dL (3.9-5); Blood Urea Nitrogen 5 mg/dL (7-17); Calcium 9.1 mg/dL (8.4-10.2); Hemolysis Index 18
[2020-11-19 21:22] LABS: BUN/Creatinine Ratio 10
[2020-11-19] MEDS ORDERED: hydrALAZINE 25 MG TAB PO ONE (22:12)
--- NOTE | 2020-11-19 23:00 | Emergency Department Report ---
ED General Adult HPI - General Chief complaint: High BP Stated complaint: HIGH BLOOD PRESSURE Source: patient Mode of arrival: Ambulatory Limitations: No Limitations - History of Present Illness Initial comments: Patient is a 40-year-old -[place] female with a history of hypertension and [id number] diabetes who presents to the ED with the persistent headache and lightheadedness with elevated blood pressure for the last 2 days, worse in the last 12 hours. Patient states that she is status post colonoscopy 12 hours ago and that her blood pressure was extremely high at the time before and after colonoscopy and was advised to come to the ED for evaluation. Patient states that she is currently taking losartan 25 mg daily but that this does not seem to be helping control her blood pressure. Patient denies chest pain, shortness of breath, syncope, dizziness, change in vision, nausea, vomiting, abdominal pain, back pain, fever, chills, cough, diaphoresis, heavy lifting, traumatic injury, back pain, numbness and tingling or weakness of upper and lower extremities bilaterally, seizures or sore throat. MD Complaint: Elevated blood pressure; lightheadedness; headache -: Sudden, days(s) (2) Location: head Radiation: non-radiation Severity scale (0 -10): 4 Quality: aching, sharp Consistency: constant Improves with: none Worsens with: none Associated Symptoms: denies other symptoms, headaches, shortness of breath. denies: confusion, chest pain, cough, diaphoresis, fever/chills, loss of appetite, malaise, nausea/vomiting, rash, seizure, syncope, weakness, other - Related Data Home Medications Medication Instructions Recorded Confirmed Last Taken Ondansetron (Nf) [Zofran] 8 mg PO Q8H PRN 07/30/14 09/30/16 07/30/14 13:00 Pnv95/Ferrous Fumarate/FA 1 tab PO QDAY 07/30/14 09/30/16 07/30/14 09:00 [ Vitamins] Previous Rx's Medication Instructions Recorded Last Taken Type HYDROcodone/APAP 5-325 [[place] 1 each PO Q6HR PRN #20 tablet 01/15/15 Unknown Rx 5/325] Ibuprofen [Motrin] 600 mg PO Q8H PRN #20 tablet 07/23/16 Unknown Rx Benzonatate [Tessalon Perles] 100 mg PO Q8HR #30 capsule 10/15/19 Unknown Rx DOXYCYCLINE Hyclate [Vibramycin 100 mg PO Q12HR #20 capsule 10/15/19 Unknown Rx CAP] Ibuprofen [Motrin 800 MG tab] 800 mg PO TID PRN #30 tablet 10/15/19 Unknown Rx Prednisone [predniSONE 10 mg 10 mg PO .TAPER #21 tab.ds.pk 10/15/19 Unknown Rx (6-Day Pack, 21 Tabs)] Acetaminophen/Codeine [Tylenol 1 tab PO Q6H PRN #10 tab 09/25/20 Unknown Rx /Codeine # 3 tab] Ibuprofen [Motrin 600 MG tab] 600 mg PO Q8H PRN #20 tablet 09/25/20 Unknown Rx Phenazopyridine [Pyridium] 100 mg PO TID #9 tab 09/25/20 Unknown Rx cephALEXin [Keflex] 500 mg PO BID 7 Days #14 cap 09/25/20 Unknown Rx Hydralazine HCl 50 mg PO Q12H #60 tablet 11/19/20 Unknown Rx Ibuprofen [Motrin] 600 mg PO Q8H PRN #30 tablet 11/19/20 Unknown Rx Allergies Allergy/AdvReac Type Severity Reaction Status Date / Time No Known Allergies Allergy Verified 11/19/20 18:39 ED Review of Systems ROS: Stated complaint: HIGH BLOOD PRESSURE Other details as noted in HPI Constitutional: malaise. denies: chills, fever Eyes: denies: eye pain, eye discharge, vision change ENT: denies: ear pain, throat pain Respiratory: denies: cough, shortness of breath, wheezing Cardiovascular: denies: chest pain, palpitations Endocrine: no symptoms reported Gastrointestinal: denies: abdominal pain, nausea, diarrhea Genitourinary: denies: urgency, dysuria, discharge Musculoskeletal: denies: back pain, joint swelling, arthralgia Skin: denies: rash, lesions Neurological: headache, other (Lightheadedness and headache). denies: weakness, paresthesias Psychiatric: anxiety. denies: depression Hematological/Lymphatic: denies: easy bleeding, easy bruising ED Past Medical Hx - Past Medical History Hx Hypertension: Yes Hx Congestive Heart Failure: No Hx Diabetes: Yes Hx Deep Vein Thrombosis: No Hx Renal Disease: No Hx Sickle Cell Disease: No Hx Seizures: No Hx Asthma: No Hx COPD: No Hx HIV: No - Surgical History Past Surgical History?: No - Social History Smoking Status: Current Every Day Smoker Substance Use Type: Marijuana - Medications Home Medications: Home Medications Medication Instructions Recorded Confirmed Last Taken Type Ondansetron (Nf) [Zofran] 8 mg PO Q8H PRN 07/30/14 09/30/16 07/30/14 13:00 History Pnv95/Ferrous Fumarate/FA 1 tab PO QDAY 07/30/14 09/30/16 07/30/14 09:00 History [ Vitamins] HYDROcodone/APAP 5-325 [[place] 1 each PO Q6HR PRN #20 tablet 01/15/15 09/30/16 Unknown Rx 5/325] Ibuprofen [Motrin] 600 mg PO Q8H PRN #20 tablet 07/23/16 09/30/16 Unknown Rx Benzonatate [Tessalon Perles] 100 mg PO Q8HR #30 capsule 10/15/19 Unknown Rx DOXYCYCLINE Hyclate [Vibramycin 100 mg PO Q12HR #20 capsule 10/15/19 Unknown Rx CAP] Ibuprofen [Motrin 800 MG tab] 800 mg PO TID PRN #30 tablet 10/15/19 Unknown Rx Prednisone [predniSONE 10 mg 10 mg PO .TAPER #21 tab.ds.pk 10/15/19 Unknown Rx (6-Day Pack, 21 Tabs)] Acetaminophen/Codeine [Tylenol 1 tab PO Q6H PRN #10 tab 09/25/20 Unknown Rx /Codeine # 3 tab] Ibuprofen [Motrin 600 MG tab] 600 mg PO Q8H PRN #20 tablet 09/25/20 Unknown Rx Phenazopyridine [Pyridium] 100 mg PO TID #9 tab 09/25/20 Unknown Rx cephALEXin [Keflex] 500 mg PO BID 7 Days #14 cap 09/25/20 Unknown Rx Hydralazine HCl 50 mg PO Q12H #60 tablet 11/19/20 Unknown Rx Ibuprofen [Motrin] 600 mg PO Q8H PRN #30 tablet 11/19/20 Unknown Rx ED Physical Exam - General Limitations: No Limitations General appearance: alert, in no apparent distress - Head Head exam: Present: atraumatic, normocephalic, normal inspection - Eye Eye exam: Present: normal appearance, PERRL, EOMI Pupils: Present: normal accommodation - ENT ENT exam: Present: normal exam, normal orophraynx, mucous membranes moist, TM's normal bilaterally, normal external ear exam - Neck Neck exam: Present: normal inspection, full ROM - Respiratory Respiratory exam: Present: normal lung sounds bilaterally. Absent: respiratory distress, wheezes, rales, rhonchi, chest wall tenderness, accessory muscle use, decreased breath sounds, prolonged expiratory - Cardiovascular Cardiovascular Exam: Present: regular rate, normal rhythm, normal heart sounds. Absent: systolic murmur, diastolic murmur, rubs, gallop - GI/Abdominal GI/Abdominal exam: Present: soft, normal bowel sounds. Absent: tenderness, guarding, rebound, hyperactive bowel sounds, hypoactive bowel sounds, organomegaly - Extremities Exam Extremities exam: Present: normal inspection, full ROM, normal capillary refill - Back Exam Back exam: Present: normal inspection, full ROM. Absent: tenderness, CVA tenderness (R), CVA tenderness (L), muscle spasm, paraspinal tenderness, vertebral tenderness - Neurological Exam Neurological exam: Present: alert, oriented X3, CN II-XII intact, normal gait, reflexes normal - Psychiatric Psychiatric exam: Present: normal affect, normal mood - Skin Skin exam: Present: warm, dry, intact, normal color. Absent: rash ED Course Vital Signs 11/19/20 11/19/20 11/19/20 18:41 21:11 22:08 Temperature 99.2 F Pulse Rate 89 89 Respiratory 18 18 Rate Blood Pressure 182/114 182/114 Blood Pressure 175/118 [Right] O2 Sat by Pulse 100 Oximetry 11/19/20 11/19/20 22:11 22:42 Temperature Pulse Rate 89 Respiratory 18 Rate Blood Pressure 175/120 Blood Pressure [Right] O2 Sat by Pulse Oximetry ED Medical Decision Making - Lab Data Result diagrams: 11/19/20 20:20 11/19/20 20:20 - Medical Decision Making This is a 40-year-old -[place] female with a history of hypertension and ajw-[id number] diabetes who presents to the ED with the persistent headache and lightheadedness with elevated blood pressure for the last 2 days, worse in the last 12 hours. Patient states that she is status post colonoscopy 12 hours ago and that her blood pressure was extremely high at the time before a nd after colonoscopy and was advised to come to the ED for evaluation. Patient states that she is currently taking losartan 25 mg daily but that this does not seem to be helping control her blood pressure. In the ED, patient is alert and oriented x3 and is not in distress but is hypertensive in triage. Patient was treated for blood pressure with amlodipine 10 mg p.o. x1, lab test results were reviewed and are all nonactionable including initial and repeat troponin levels. Patient was also treated with hydralazine in the ED and on reevaluation, patient blood pressure improved with treatment. Patient was then discharged home on prescription of hypertension and advised to follow-up with her primary care physician in 5 to 7 days for reevaluation. Patient was advised return to the ED immediately if symptoms get worse. - Differential Diagnosis Hypertension urgency; CAD; lightheadedness Critical care attestation.: If time is entered above; I have spent that time in minutes in the direct care of this critically ill patient, excluding procedure time. ED Disposition Clinical Impression: Uncontrolled stage 2 hypertension, Anxiety as acute reaction to exceptional stress Disposition: DC-01 TO HOME OR SELFCARE Is pt being admited?: No Does the pt Need Aspirin: No Condition: Stable Instructions: Hypertension (ED), Hypertension, Adult, Elkw-ml-Rcsz, Generalized Anxiety Disorder, Adult Additional Instructions: Take the previously prescribed medications for blood pressure in addition to the new prescription being provided today. Therefore follow-up with your primary care physician in 3 to 5 days for reevaluation or return to the ED immediately if symptoms get worse. Prescriptions: Hydralazine HCl 50 mg PO Q12H #60 tablet Ibuprofen [Motrin] 600 mg PO Q8H PRN #30 tablet PRN Reason: Pain Referrals: BARBARA WAGGONER MD [Primary Care Provider] - 3-5 Days Time of Disposition: 23:03 Print Language: RUSSIAN
[2020-11-20 00:05] VITALS: BP 166/107
== END 2020-11-20 00:10 | disposition home or self-care (01) ==
LOC: ED 18:22
DX: I10 Essential (primary) hypertension (principal); F41.9 Anxiety disorder, unspecified; F43.9 Reaction to severe stress, unspecified; E11.9 Type 2 diabetes mellitus without complications; F17.200 Nicotine dependence, unspecified, uncomplicated; F12.10 Cannabis abuse, uncomplicated; Z79.899 Other long term (current) drug therapy
CPT/HCPCS: 36415; 80053; 84436; 84443; 84484; 85025; 93005; 99282; 99283

== ENCOUNTER 2021-01-18 12:19 | Emergency (ER) | payer MEDICAID ==
[2021-01-18 12:26] VITALS: BP 164/110
--- NOTE | 2021-01-18 13:10 | XRay Report ---
LEFT KNEE 3 VIEW(S) INDICATION / CLINICAL INFORMATION: knee pain s/p fall COMPARISON: None available. FINDINGS: BONES / JOINT(S): No acute fracture or subluxation. No significant arthritis. Small suprapatellar eff usion. SOFT TISSUES: No significant abnormality. ADDITIONAL FINDINGS: None. Signer Name: Williams Roach MD Signed: 01/18/2021 1:06 PM Workstation Name: [id number]
[2021-01-18] MEDS ORDERED: HYDROcodone/ACETAMINOPHEN 10-325MG TAB PO ONE (13:26)
--- NOTE | 2021-01-18 13:57 | Emergency Department Report ---
ED Lower Extremity HPI - General Chief Complaint: Extremity Injury, Lower Stated Complaint: LT KNEE PAIN Time Seen by Provider: 01/18/21 12:27 Source: patient, EMS Mode of arrival: Ambulatory Limitations: No Limitations - History of Present Illness Initial Comments: This is a 40-year-old female nontoxic, well nourished in appearance, no acute signs of distress presents to the ED with c/o of left knee pain that started today. Patient stated that she was jumping on a trampoline and developed sharp sudden pain. Patient denies any direct injuries or trauma. Patient denies any other complaints or symptoms. Patient denies any numbness, tingling, fever, chills, nausea, vomiting, chest pain, shortness of breath, headache, stiff neck. Patient denies any joint swelling or joint redness. Patient denies decreased range of motion. Patient stated has decreased gait due to pain. Patient denies any allergies or significant past medical history. MD Complaint: knee injury -: This morning Injury: Knee: Left Place: home Severity: mild Severity scale (0 -10): 8 Improves With: immobilization Worsens With: weight bearing, movement, palpation Associated Symptoms: swelling, unable to bear weight. denies: snap/pop sensation, numbness, tingling, able to partially bear weight - Related Data Home Medications Medication Instructions Recorded Confirmed Last Taken Ondansetron (Nf) [Zofran] 8 mg PO Q8H PRN 07/30/14 09/30/16 07/30/14 13:00 Pnv95/Ferrous Fumarate/FA 1 tab PO QDAY 07/30/14 09/30/16 07/30/14 09:00 [ Vitamins] Previous Rx's Medication Instructions Recorded Last Taken Type HYDROcodone/APAP 5-325 [Randolph 1 each PO Q6HR PRN #20 tablet 01/15/15 Unknown Rx 5/325] Ibuprofen [Motrin] 600 mg PO Q8H PRN #20 tablet 07/23/16 Unknown Rx Benzonatate [Tessalon Perles] 100 mg PO Q8HR #30 capsule 10/15/19 Unknown Rx DOXYCYCLINE Hyclate [Vibramycin 100 mg PO Q12HR #20 capsule 10/15/19 Unknown Rx CAP] Ibuprofen [Motrin 800 MG tab] 800 mg PO TID PRN #30 tablet 10/15/19 Unknown Rx Prednisone [predniSONE 10 mg 10 mg PO .TAPER #21 tab.ds.pk 10/15/19 Unknown Rx (6-Day Pack, 21 Tabs)] Acetaminophen/Codeine [Tylenol 1 tab PO Q6H PRN #10 tab 09/25/20 Unknown Rx /Codeine # 3 tab] Ibuprofen [Motrin 600 MG tab] 600 mg PO Q8H PRN #20 tablet 09/25/20 Unknown Rx Phenazopyridine [Pyridium] 100 mg PO TID #9 tab 09/25/20 Unknown Rx cephALEXin [Keflex] 500 mg PO BID 7 Days #14 cap 09/25/20 Unknown Rx Hydralazine HCl 50 mg PO Q12H #60 tablet 11/19/20 Unknown Rx Ibuprofen [Motrin] 600 mg PO Q8H PRN #30 tablet 11/19/20 Unknown Rx Naproxen 500 mg PO Q12H PRN #20 tablet 01/18/21 Unknown Rx Allergies Allergy/AdvReac Type Severity Reaction Status Date / Time No Known Allergies Allergy Verified 11/19/20 18:39 ED Review of Systems ROS: Stated complaint: LT KNEE PAIN Other details as noted in HPI Comment: All other systems reviewed and negative Constitutional: denies: chills, fever Eyes: denies: eye pain, eye discharge, vision change ENT: denies: ear pain, throat pain Respiratory: denies: cough, shortness of breath, wheezing Cardiovascular: denies: chest pain, palpitations Endocrine: no symptoms reported Gastrointestinal: denies: abdominal pain, nausea, diarrhea Genitourinary: denies: urgency, dysuria, discharge Musculoskeletal: denies: back pain, joint swelling, arthralgia Skin: denies: rash, lesions Neurological: denies: headache, weakness, paresthesias Psychiatric: denies: anxiety, depression Hematological/Lymphatic: denies: easy bleeding, easy bruising ED Past Medical Hx - Past Medical History Previous Medical History?: Yes Hx Hypertension: Yes Hx Congestive Heart Failure: No Hx Diabetes: Yes Hx Deep Vein Thrombosis: No Hx Renal Disease: No Hx Sickle Cell Disease: No Hx Seizures: No Hx Asthma: No Hx COPD: No Hx HIV: No - Surgical History Past Surgical History?: No - Social History Smoking Status: Current Every Day Smoker Substance Use Type: Alcohol, Marijuana - Medications Home Medications: Home Medications Medication Instructions Recorded Confirmed Last Taken Type Ondansetron (Nf) [Zofran] 8 mg PO Q8H PRN 07/30/14 09/30/16 07/30/14 13:00 History Pnv95/Ferrous Fumarate/FA 1 tab PO QDAY 07/30/14 09/30/16 07/30/14 09:00 History [ Vitamins] HYDROcodone/APAP 5-325 [Randolph 1 each PO Q6HR PRN #20 tablet 01/15/15 09/30/16 Unknown Rx 5/325] Ibuprofen [Motrin] 600 mg PO Q8H PRN #20 tablet 07/23/16 09/30/16 Unknown Rx Benzonatate [Tessalon Perles] 100 mg PO Q8HR #30 capsule 10/15/19 Unknown Rx DOXYCYCLINE Hyclate [Vibramycin 100 mg PO Q12HR #20 capsule 10/15/19 Unknown Rx CAP] Ibuprofen [Motrin 800 MG tab] 800 mg PO TID PRN #30 tablet 10/15/19 Unknown Rx Prednisone [predniSONE 10 mg 10 mg PO .TAPER #21 tab.ds.pk 10/15/19 Unknown Rx (6-Day Pack, 21 Tabs)] Acetaminophen/Codeine [Tylenol 1 tab PO Q6H PRN #10 tab 09/25/20 Unknown Rx /Codeine # 3 tab] Ibuprofen [Motrin 600 MG tab] 600 mg PO Q8H PRN #20 tablet 09/25/20 Unknown Rx Phenazopyridine [Pyridium] 100 mg PO TID #9 tab 09/25/20 Unknown Rx cephALEXin [Keflex] 500 mg PO BID 7 Days #14 cap 09/25/20 Unknown Rx Hydralazine HCl 50 mg PO Q12H #60 tablet 11/19/20 Unknown Rx Ibuprofen [Motrin] 600 mg PO Q8H PRN #30 tablet 11/19/20 Unknown Rx Naproxen 500 mg PO Q12H PRN #20 tablet 01/18/21 Unknown Rx ED Physical Exam - General Limitations: No Limitations General appearance: alert, in no apparent distress - Head Head exam: Present: atraumatic, normocephalic - Eye Eye exam: Present: normal appearance - Neck Neck exam: Present: normal inspection, full ROM - Respiratory Respiratory exam: Absent: respiratory distress - Cardiovascular Cardiovascular Exam: Present: regular rate - Extremities Exam Extremities exam: Present: full ROM, tenderness, normal capillary refill. Absent: joint swelling, calf tenderness - Expanded Lower Extremity Exam Left Hip exam: Present: normal inspection, full ROM. Absent: tenderness, swelling Upper Leg exam: Present: normal inspection, full ROM. Absent: tenderness, swelling Knee exam: Present: full ROM (With pain), tenderness, swelling, full knee extension. Absent: abrasion, laceration, ecchymosis, deformity, crepidus, dislocation, erythema, effusion, pain w/ pronation/supination, posterior draw sign, pain/laxity with valgus, pain/laxity with varus Lower Leg exam: Present: normal inspection, full ROM. Absent: tenderness, swelling Ankle exam: Present: normal inspection, full ROM. Absent: tenderness, swelling Foot/Toe exam: Present: normal inspection, full ROM. Absent: tenderness, swelling Neuro vascular tendon exam: Present: no vascular compromise Gait: Positive: unable to bear weight - Back Exam Back exam: Present: normal inspection, full ROM. Absent: tenderness, paraspinal tenderness, vertebral tenderness - Neurological Exam Neurological exam: Present: alert, oriented X3 - Psychiatric Psychiatric exam: Present: normal affect, normal mood - Skin Skin exam: Present: warm, dry, intact, normal color. Absent: rash ED Course Vital Signs 01/18/21 01/18/21 12:22 13:40 Temperature 98.8 F Pulse Rate 78 Respiratory 22 20 Rate Blood Pressure 164/110 O2 Sat by Pulse 98 Oximetry - Reevaluation(s) Reevaluation #2: 01/18/21 13:55 Patient is speaking in full sentences with no signs of distress noted. ED Lower Extremity MDM - Radiology Data [facility] [address] [place] [address] XRay Report Signed Patient: IDA HUNG MR#: [id number] : 1980 Acct:[id number] Age/Sex: 40 / F ADM Date: 01/18/21 Loc: ED Attending Dr: Ordering Physician: ALIA RUSH NP Date of Service: 01/18/21 Procedure(s): XR knee 3V LT Accession Number(s): [id number] cc: ALIA RUSH NP Fluoro Time In Minutes: LEFT KNEE 3 VIEW(S) INDICATION / CLINICAL INFORMATION: knee pain s/p fall COMPARISON: None available. FINDINGS: BONES / JOINT(S): No acute fracture or subluxation. No significant arthritis. Small suprapatellar effusion. SOFT TISSUES: No significant abnormality. ADDITIONAL FINDINGS: None. Signer Name: Riki Roach MD Signed: 01/18/2021 1:06 PM Workstation Name: [id number] Transcribed By: Dictated By: RIKI ROACH III Electronically Authenticated By: RIKI ROACH III Signed Date/Time: 01/18/21 1306 DD/ 1305 TD/TT: - Medical Decision Making This is a 40-year-old female that presents with left knee strain. Patient is stable and was examined by me. I referred patient to an orthopedic doctor for further evaluation for possible MRI. X-ray has been obtained and dictated by the radiologist. Patient is notified of the x-ray report with noted by the patient. No ecchymosis. no joint redness or swelling. Not warm to touch. No signs of cellulites present. Patient received a knee immobilize and crutches and was educated by RN how to use crutches. Patient was instructed to RICE therapy. Patient received Randolph for pain which stated that her family member will drive patient home after discharge due to possible drowsiness. Patient is discharged with naproxen. At time of discharge, the patient does not seem toxic or ill in appearance. No acute signs of distress noted. Patient agrees to discharge treatment plan of care. No further questions noted by the patient. Critical care attestation.: If time is entered above; I have spent that time in minutes in the direct care of this critically ill patient, excluding procedure time. ED Disposition Clinical Impression: Strain of left knee Qualifiers: Encounter type: initial encounter Qualified Code(s): S86.912A - Strain of unspecified muscle(s) and tendon(s) at lower leg level, left leg, initial encounter Disposition: - TO HOME OR SELFCARE Is pt being admited?: No Does the pt Need Aspirin: No Condition: Stable Instructions: RICE Therapy for Routine Care of Injuries, [id number], Crutch Use, Adult, [id number] Additional Instructions: Follow-up with a orthopedic doctor in 3-5 days or if symptoms worsen and continue return to emergency room as soon as possible. No physical activity that extremity until cleared by orthopedic doctor Prescriptions: Naproxen 500 mg PO Q12H PRN #20 tablet PRN Reason: Pain , Severe (7-10) Referrals: PRIMARY CARE, [Referring] - 3-5 Days RIKI RICHARDSON MD [Staff Physician] - 3-5 Days Forms: Work/School Release Form(ED) Time of Disposition: 13:57
== END 2021-01-18 14:07 | disposition home or self-care (01) ==
LOC: ED 12:19
DX: S86.912A Strain of unspecified muscle(s) and tendon(s) at lower leg level, left leg, initial encounter (principal); I10 Essential (primary) hypertension; E11.9 Type 2 diabetes mellitus without complications; F17.200 Nicotine dependence, unspecified, uncomplicated; F12.10 Cannabis abuse, uncomplicated; Z79.1 Long term (current) use of non-steroidal anti-inflammatories (NSAID); Z79.899 Other long term (current) drug therapy; X58.XXXA Exposure to other specified factors, initial encounter; Y93.89 Activity, other specified; Y92.89 Other specified places as the place of occurrence of the external cause; Y99.8 Other external cause status

== ENCOUNTER 2022-04-26 17:21 | Emergency (ER) | payer MEDICAID ==
[2022-04-26 21:15] LABS: Alanine Aminotransferase 16 units/L (7-56); Albumin 3.9 g/dL (3.9-5); Blood Urea Nitrogen 7 mg/dL (7-17); Calcium 9.5 mg/dL (8.4-10.2); Hemolysis Index 2
[2022-04-26 21:19] LABS: Basophils # (Auto) 0.1 K/mm3 (0.0-0.1); Basophils % (Auto) 0.4 % (0.0-1.8); Eosinophils % (Auto) 0.3 % (0.0-4.3); Hemoglobin 11.9 gm/dl (10.1-14.3); Lymphocytes # (Auto) 2.7 K/mm3 (1.2-5.4); Lymphocytes % (Auto) 16.9 % (13.4-35.0); Mean Corpuscular HGB Conc 33 % (30-34); Mean Corpuscular Volume 101 fl (79-97); Monocytes # (Auto) 1.1 K/mm3 (0.0-0.8); Platelet Count 298 K/mm3 (140-440); Red Blood Count 3.56 M/mm3 (3.65-5.03); Red Cell Distribution Width 14.5 % (13.2-15.2)
[2022-04-26 21:24] LABS: BUN/Creatinine Ratio 14
[2022-04-26 22:55] LABS: Mucus,Urine 3+ /HPF; Sperm,Urine 2+ /HPF (NP)
[2022-04-26 23:01] LABS: RBC,Urine > 182.0 /HPF (0.0-6.0)
[2022-04-26 23:09] LABS: Color,Urine Brown (Yellow)
[2022-04-26 23:10] LABS: Bilirubin,Urine Negative (Negative); Blood,Urine 3+ (Negative); Urobilinogen,Urine < 2.0 mg/dL (<2.0)
[2022-04-27 01:23] VITALS: BP 149/102
--- NOTE | 2022-04-27 02:33 | Cat Scan Report ---
CT ABDOMEN AND PELVIS WITH CONTRAST HISTORY: Upper adn mid abdominal pain. COMPARISON: 09/25/2020 TECHNIQUE: CT images of the abdomen and pelvis were obtained following administration of intravenous contrast. All CT scans at this location are performed using CT dose reduction for ALARA by means of automated exposure control. CONTRAST: Lung bases are clear ml of intravenous contrast administered. FINDINGS: Diffuse fatty infiltration liver the liver. The spleen, adrenal glands, pancreas, gallbladder appear normal. Upper GI tract is unremarkable. There is marked abnormality within the region of the cecum wi th marked bowel wall thickening. There is some surrounding inflammation. The appendix appears normal. Right adnexal cysts is noted. Heterogeneity of the uterus. IMPRESSION: 1. Abnormal appearance of the cecum with marked bowel wall thickening. There is some mild surrounding inflammation in the mesentery. A few mildly prominent nodes are seen. Findings concerning for coloni c carcinoma given abnormal appearance and marked thickening. Other differential consideration would i nclude colitis/inflammatory bowel however carcinoma should be excluded.. The appendix appears normal. Colonoscopy and follow-up with gastroenterology recommended. 2. Right adnexal cyst. Called to ER at time of exam. Signer Name: Kenneth Moore MD Signed: 04/27/2022 2:29 AM Workstation Name: [id number]
--- NOTE | 2022-04-27 04:24 | Emergency Department Report ---
ED General Adult HPI - General Chief complaint: Abdominal Pain Stated complaint: STOMACH PAIN/NAUSEA/BLOOD IN STOOL/VOMITTING Time Seen by Provider: 04/27/22 01:16 Source: patient Mode of arrival: Ambulatory Limitations: No Limitations - History of Present Illness Initial comments: 6-year-old Finnish female was admitted department complaining of a long history of intermittent rectal bleeding of an unknown etiology she has been evaluated by her PCP and gastroenterology in the form of a colonoscopy at [place] about a year and a half ago which she reports was negative for polyps. She advisement problems with this is her bleeding reemerge and her pain not significantly improved so she returns today for follow-up of her children. Reports no nausea, no vomiting, hemoptysis hematemesis hematochezia -: Gradual - Related Data Home Medications Medication Instructions Recorded Confirmed Last Taken Ondansetron (Nf) [Zofran] 8 mg PO Q8H PRN 07/30/14 09/30/16 07/30/14 13:00 Pnv95/Ferrous Fumarate/FA 1 tab PO QDAY 07/30/14 09/30/16 07/30/14 09:00 [ Vitamins] Previous Rx's Medication Instructions Recorded Last Taken Type HYDROcodone/APAP 5-325 [Marion 1 each PO Q6HR PRN #20 tablet 01/15/15 Unknown Rx 5/325] Ibuprofen [Motrin] 600 mg PO Q8H PRN #20 tablet 07/23/16 Unknown Rx Benzonatate [Tessalon Perles] 100 mg PO Q8HR #30 capsule 10/15/19 Unknown Rx DOXYCYCLINE Hyclate [Vibramycin 100 mg PO Q12HR #20 capsule 10/15/19 Unknown Rx CAP] Ibuprofen [Motrin 800 MG tab] 800 mg PO TID PRN #30 tablet 10/15/19 Unknown Rx Prednisone [predniSONE 10 mg 10 mg PO .TAPER #21 tab.ds.pk 10/15/19 Unknown Rx (6-Day Pack, 21 Tabs)] Acetaminophen/Codeine [Tylenol 1 tab PO Q6H PRN #10 tab 09/25/20 Unknown Rx /Codeine # 3 tab] Ibuprofen [Motrin 600 MG tab] 600 mg PO Q8H PRN #20 tablet 09/25/20 Unknown Rx Phenazopyridine [Pyridium] 100 mg PO TID #9 tab 09/25/20 Unknown Rx cephALEXin [Keflex] 500 mg PO BID 7 Days #14 cap 09/25/20 Unknown Rx Hydralazine HCl 50 mg PO Q12H #60 tablet 11/19/20 Unknown Rx Ibuprofen [Motrin] 600 mg PO Q8H PRN #30 tablet 11/19/20 Unknown Rx Naproxen 500 mg PO Q12H PRN #20 tablet 01/18/21 Unknown Rx Allergies Allergy/AdvReac Type Severity Reaction Status Date / Time No Known Allergies Allergy Verified 11/19/20 18:39 ED Review of Systems ROS: Stated complaint: STOMACH PAIN/NAUSEA/BLOOD IN STOOL/VOMITTING Other details as noted in HPI Comment: All other systems reviewed and negative ED Past Medical Hx - Past Medical History Hx Hypertension: Yes Hx Congestive Heart Failure: No Hx Diabetes: Yes Hx Deep Vein Thrombosis: No Hx Renal Disease: No Hx Sickle Cell Disease: No Hx Seizures: No Hx Asthma: No Hx COPD: No Hx HIV: No - Social History Smoking Status: Current Every Day Smoker Substance Use Type: Alcohol, Marijuana - Medications Home Medications: Home Medications Medication Instructions Recorded Confirmed Last Taken Type Ondansetron (Nf) [Zofran] 8 mg PO Q8H PRN 07/30/14 09/30/16 07/30/14 13:00 History Pnv95/Ferrous Fumarate/FA 1 tab PO QDAY 07/30/14 09/30/16 07/30/14 09:00 History [ Vitamins] HYDROcodone/APAP 5-325 [Marion 1 each PO Q6HR PRN #20 tablet 01/15/15 09/30/16 Unknown Rx 5/325] Ibuprofen [Motrin] 600 mg PO Q8H PRN #20 tablet 07/23/16 09/30/16 Unknown Rx Benzonatate [Tessalon Perles] 100 mg PO Q8HR #30 capsule 10/15/19 Unknown Rx DOXYCYCLINE Hyclate [Vibramycin 100 mg PO Q12HR #20 capsule 10/15/19 Unknown Rx CAP] Ibuprofen [Motrin 800 MG tab] 800 mg PO TID PRN #30 tablet 10/15/19 Unknown Rx Prednisone [predniSONE 10 mg 10 mg PO .TAPER #21 tab.ds.pk 10/15/19 Unknown Rx (6-Day Pack, 21 Tabs)] Acetaminophen/Codeine [Tylenol 1 tab PO Q6H PRN #10 tab 01/14/21 Unknown Rx /Codeine # 3 tab] Ibuprofen [Motrin 600 MG tab] 600 mg PO Q8H PRN #20 tablet 09/25/20 Unknown Rx Phenazopyridine [Pyridium] 100 mg PO TID #9 tab 09/25/20 Unknown Rx cephALEXin [Keflex] 500 mg PO BID 7 Days #14 cap 09/25/20 Unknown Rx Hydralazine HCl 50 mg PO Q12H #60 tablet 11/19/20 Unknown Rx Ibuprofen [Motrin] 600 mg PO Q8H PRN #30 tablet 11/19/20 Unknown Rx Naproxen 500 mg PO Q12H PRN #20 tablet 01/18/21 Unknown Rx ED Physical Exam - General Limitations: No Limitations General appearance: alert, in no apparent distress - Head Head exam: Present: atraumatic, normocephalic - Eye Eye exam: Present: normal appearance - ENT ENT exam: Present: mucous membranes moist - Neck Neck exam: Present: normal inspection - Respiratory Respiratory exam: Present: normal lung sounds bilaterally. Absent: respiratory distress - Cardiovascular Cardiovascular Exam: Present: regular rate, normal rhythm. Absent: systolic murmur, diastolic murmur, rubs, gallop - GI/Abdominal GI/Abdominal exam: Present: soft, normal bowel sounds - Extremities Exam Extremities exam: Present: normal inspection - Back Exam Back exam: Present: normal inspection - Neurological Exam Neurological exam: Present: alert, oriented X3 - Psychiatric Psychiatric exam: Present: normal affect, normal mood - Skin Skin exam: Present: warm, dry, intact, normal color. Absent: rash ED Course Vital Signs 04/27/22 01:23 Temperature 99.1 F Pulse Rate 98 H Respiratory 18 Rate Blood Pressure 149/102 [Left] O2 Sat by Pulse 99 Oximetry ED Medical Decision Making - Lab Data Result diagrams: 04/26/22 20:25 04/26/22 20:25 Critical care attestation.: If time is entered above; I have spent that time in minutes in the direct care of this critically ill patient, excluding procedure time. ED Disposition Clinical Impression: Lower abdominal pain of unknown etiology, Chronic GI bleeding Disposition: 01 HOME / SELF CARE / HOMELESS Is pt being admited?: No Does the pt Need Aspirin: No Condition: Stable Instructions: Abdominal Pain (ED), Abdominal Pain During , Gastrointestinal Bleeding Scan, Gastrointestinal Bleeding, [id number] Additional Instructions: You have been evaluated emergency department today for abdominal pain. Your evaluation did not show evidence of any medical conditions requiring emergent intervention at this time. Your lipase was it was elevated but not to a significant degree significant pancreatitis does not appear to be present at this time please drink plenty of fluids. Your CT scan did show abnormalities in the form to the cecum as we discussed please get these checked. In the future to be evaluated for possible carcinoma versus inflammatory bowel syndrome. Please schedule an appointment with your primary care physician. Return to emergency department if you experience worsening uncontrolled pain, fevers of 100.4 or greater, recurrent vomiting, inability to tolerate food or fluids by mouth, bloody stools or vomit, black tarry stools, or any other concerning symptoms. Referrals: PRIMARY CARE, [Primary Care Provider] - 3-5 Days
[2022-04-27] MEDS ORDERED: HYDROcodone/ACETAMINOPHEN 5-325 MG TAB PO STA (05:01)
== END 2022-04-27 05:20 | disposition home or self-care (01) ==
LOC: ED 17:21
DX: K92.2 Gastrointestinal hemorrhage, unspecified (principal); R10.30 Lower abdominal pain, unspecified; I10 Essential (primary) hypertension; E11.9 Type 2 diabetes mellitus without complications; F17.200 Nicotine dependence, unspecified, uncomplicated
CPT/HCPCS: 36415; 74177; 80053; 81001; 83690; 84703; 85025; 87086; 99284; Q9967